=== PATIENT | female | born 1975 | race Caucasian/White ===

== ENCOUNTER 2016-07-28 18:58 | Emergency (ER) | payer OTHER ==
[~2016-07-28] VITALS: Ht 170.2 cm; Wt 88.5 kg
--- NOTE | 2016-07-28 19:37 | NUR ---
dPatient discharged to home in stable conditon. Written and verbal after care instructions given. Patient verbalizes understanding of instructions. Ambulated from ER with stable gait. All belongings with patient.
[2016-07-28 19:39] VITALS: BP 152/93
== END 2016-07-28 19:45 | disposition home or self-care (01) ==
LOC: ER 18:58
DX: L02.411 Cutaneous abscess of right axilla (principal); I10 Essential (primary) hypertension; Z88.0 Allergy status to penicillin
CPT/HCPCS: A4663

== ENCOUNTER 2017-02-17 16:54 | Emergency (ER) | payer OTHER ==
[~2017-02-17] VITALS: Ht 167.6 cm; Wt 88.5 kg
[2017-02-17] MEDS ORDERED: NEOMY/BACITRA/POLYMYXIN B OINT UD PACKET TP ONE ×2 (17:45→17:46)
[2017-02-17] MEDS ORDERED: TDAP DIPH,PERTUSS,TET VAC/PF 0.5 ML DISP.SYRIN IM ONE ×2 (18:00→18:30)
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
--- NOTE | 2017-02-17 19:04 | NUR ---
LABS DRAWN. RESULTS MAY NOT COME BACK FOR A FEW DAYS. PATIENT WAS INSTRUCTED TO GO HOME AND WILL BE NOTIFIED BY HOSPITAL/MD WHEN RESULTS ARE IN.
[2017-02-19 07:06] LABS: HEPATITIS A AB, TOTAL Negative (Negative); HEPATITIS B SURFACE AB Non Reactive (.); HEPATITIS B SURFACE AG Negative (Negative)
== END 2017-02-17 19:06 | disposition home or self-care (01) ==
LOC: ER 16:55
DX: S61.452A Open bite of left hand, initial encounter (principal); S61.451A Open bite of right hand, initial encounter; I10 Essential (primary) hypertension; Z88.0 Allergy status to penicillin; Y04.1XXA Assault by human bite, initial encounter; Y93.89 Activity, other specified; Y92.89 Other specified places as the place of occurrence of the external cause; Y99.8 Other external cause status
CPT/HCPCS: 86706; 86708; 86803; 87340; 87536; 87806; 90471; 90715; 99284; A4217; A4663; 36415

== ENCOUNTER 2018-05-01 06:24 | Emergency (ER) | payer OTHER ==
[~2018-05-01] VITALS: Ht 170.2 cm; Wt 93.0 kg
[2018-05-01] MEDS ORDERED: COLCHICINE 0.6 MG TABLET ONE (06:54)
[2018-05-01] MEDS ORDERED: COLCHICINE 0.6 MG TABLET PO ONE (07:00)
--- NOTE | 2018-05-01 07:01 | NUR ---
Patient discharged to home in stable conditon. Written and verbal after care instructions given. Patient verbalizes understanding of instructions.
== END 2018-05-01 07:02 | disposition home or self-care (01) ==
LOC: ER 06:26
DX: M10.9 Gout, unspecified (principal); I10 Essential (primary) hypertension; Z88.0 Allergy status to penicillin
CPT/HCPCS: A4663